=== PATIENT | female | born 1950 | race African-American/Black ===

== ENCOUNTER 2017-01-15 07:47 | Emergency (ER) | payer SELFPAY ==
[~2017-01-15] VITALS: Ht 162.6 cm; Wt 68.0 kg
[2017-01-15] MEDS ORDERED: LIDOCAINE HCL 1% 20ML VIAL (Pyxis) INJ MC ONE (08:15)
[2017-01-15] MEDS ORDERED: BACITRACIN ZINC OINT UDPKT TOP ONE (08:15)
[2017-01-15] MEDS ORDERED: HYDROCODONE/APAP 7.5/325MG 1 TAB TABLET PO ONE (09:15)
[2017-01-15 09:28] VITALS: BP 164/103
== END 2017-01-15 10:31 | disposition home or self-care (01) ==
LOC: ER 08:26
DX: S01.01XA Laceration without foreign body of scalp, initial encounter (principal); Y04.0XXA Assault by unarmed brawl or fight, initial encounter; Y93.89 Activity, other specified; Y92.098 Other place in other non-institutional residence as the place of occurrence of the external cause; E11.9 Type 2 diabetes mellitus without complications; I10 Essential (primary) hypertension; R51 Headache; Z86.73 Personal history of transient ischemic attack (TIA), and cerebral infarction without residual deficits; Z88.0 Allergy status to penicillin; F17.210 Nicotine dependence, cigarettes, uncomplicated; F14.10 Cocaine abuse, uncomplicated; S50.812A Abrasion of left forearm, initial encounter
CPT/HCPCS: 12002; 70450; 99284; J3490; Z7610; 12011

== ENCOUNTER 2019-05-10 02:14 | Emergency (ER) | payer SELFPAY ==
[~2019-05-10] VITALS: Ht 157.5 cm; Wt 57.0 kg
[2019-05-10] MEDS ORDERED: CLONIDINE 0.2MG TABLET PO ONE (02:45)
[2019-05-10 03:04] LABS: CHLORIDE 107 mEq/L (98-107)
[2019-05-10 03:08] LABS: ETHANOL BLOOD < 10 mg/dL
[2019-05-10 03:09] LABS: CLARITY URINE CLEAR (CLEAR); COLOR URINE YELLOW (YELLOW); KETONES URINE NEGATIVE (NEGATIVE); LEUKOCYTE ESTERASE URINE 1+ (NEGATIVE); NITRITE URINE NEGATIVE (NEGATIVE); OCCULT BLOOD URINE NEGATIVE (NEGATIVE); PH URINE 6.5 (4.5-8.0); PROTEIN URINE 2+ (NEGATIVE); SPECIFIC GRAVITY URINE 1.015 (1.005-1.030)
[2019-05-10 03:11] LABS: BASOPHILS % 0.6 % (0.0-2.0); HEMATOCRIT. 33.7 % (36.0-48.0); HEMOGLOBIN. 11.1 g/dL (12.0-16.0); LYMPHOCYTES % 28.9 % (20.0-50.0); MEAN CORPUSCULAR HEMOGLOBIN 28.8 pg (28.0-32.0); MEAN CORPUSCULAR VOLUME 87.1 fL (81.0-99.0); MEAN PLATELET VOLUME 8.5 fl (7.4-10.4); MONOCYTES % 6.1 % (2.0-8.0); NEUTROPHILS % 64.4 % (40.0-76.0); PLATELET 348 x1000/uL (130-400); RED BLOOD CELL COUNT 3.87 mill/uL (4.2-5.4); RED CELL DISTRIBUTION WIDTH 14.6 % (11.6-14.6)
[2019-05-10 03:19] LABS: *AMPHETAMINES SCREEN URINE NEGATIVE (NEGATIVE); *BARBITURATES SCREEN URINE NEGATIVE (NEGATIVE); *BENZODIAZEPINES SCREEN URINE NEGATIVE (NEGATIVE); *COCAINE SCREEN URINE PRESUMTIVE POSITIVE (NEGATIVE); METHADONE URINE SCREEN NEGATIVE (NEGATIVE); OPIATES URINE SCREEN NEGATIVE (NEGATIVE)
[2019-05-10 03:20] LABS: CANNABINOID URINE SCREEN NEGATIVE (NEGATIVE); PHENCYCLIDINE URINE SCREEN PRESUMTIVE POSITIVE (NEGATIVE)
[2019-05-10] MEDS ORDERED: HYDRALAZINE 20MG/ML VIAL IV ONE (03:45)
[2019-05-10 04:34] VITALS: BP 153/90
== END 2019-05-10 04:49 | disposition home or self-care (01) ==
LOC: ER 02:14
DX: F19.10 Other psychoactive substance abuse, uncomplicated (principal); I16.1 Hypertensive emergency; I10 Essential (primary) hypertension; N17.9 Acute kidney failure, unspecified; R41.82 Altered mental status, unspecified; E11.9 Type 2 diabetes mellitus without complications
CPT/HCPCS: 36415; 80305; 80320; 81003; 83880; 84484; 93005; 99284; J0360; G0480

== ENCOUNTER 2019-08-27 09:56 | Emergency (ER) | payer OTHER ==
[~2019-08-27] VITALS: Ht 167.6 cm; Wt 65.0 kg
[2019-08-27] MEDS ORDERED: IPRATROPIUM BROMIDE (0.02%) 0.5MG/2.5ML NEB HHN STA (10:38)
[2019-08-27] MEDS ORDERED: ALBUTEROL (0.083%) 2.5MG/3ML NEB HHN STA (10:38)
[2019-08-27] MEDS ORDERED: METHYLPREDNISOLONE SOD SUCC 125 MG/2 ML VIAL IV STA (10:38)
[2019-08-27] MEDS ORDERED: ASPIRIN 81MG TABLET PO ONE (10:45)
[2019-08-27] MEDS ORDERED: ONDANSETRON HCL 4MG/2ML INJ IV ONE (11:30)
[2019-08-27 11:40] LABS: BASOPHILS % 0.9 % (0.0-2.0); HEMATOCRIT. 33.8 % (36.0-48.0); LYMPHOCYTES % 17.9 % (20.0-50.0); MEAN CORPUSCULAR HEMOGLOBIN 29.7 pg (28.0-32.0); MEAN CORPUSCULAR VOLUME 90.7 fL (81.0-99.0); MEAN PLATELET VOLUME 9.5 fl (7.4-10.4); MONOCYTES % 7.9 % (2.0-8.0); NEUTROPHILS % 73.3 % (40.0-76.0); PLATELET 267 x1000/uL (130-400); RED BLOOD CELL COUNT 3.72 mill/uL (4.2-5.4); RED CELL DISTRIBUTION WIDTH 13.9 % (11.6-14.6)
[2019-08-27 11:47] LABS: CHLORIDE 111 mEq/L (98-107)
[2019-08-27 13:10] VITALS: BP 130/79
== END 2019-08-27 15:05 | disposition home or self-care (01) ==
LOC: ER 09:56
DX: J44.1 Chronic obstructive pulmonary disease with (acute) exacerbation (principal); E11.9 Type 2 diabetes mellitus without complications; I10 Essential (primary) hypertension; I69.328 Other speech and language deficits following cerebral infarction; I69.351 Hemiplegia and hemiparesis following cerebral infarction affecting right dominant side; Z88.0 Allergy status to penicillin
CPT/HCPCS: 36415; 71045; 80053; 83880; 84484; 84550; 85025; 93005; 94640; 96374; 99284; J2930; J7611

== ENCOUNTER 2019-10-23 21:15 | Emergency (ER) | payer MEDICAID ==
[~2019-10-23] VITALS: Ht 167.6 cm; Wt 77.0 kg
[2019-10-23] MEDS ORDERED: HYDRALAZINE HCL 10MG TABLET PO ONE (23:15)
[2019-10-23] MEDS ORDERED: CLONIDINE 0.1MG TABLET PO ONE (23:15)
[2019-10-23 23:35] LABS: BASOPHILS % 0.3 % (0.0-2.0); HEMATOCRIT. 36.2 % (36.0-48.0); HEMOGLOBIN. 11.5 g/dL (12.0-16.0); LYMPHOCYTES % 12.3 % (20.0-50.0); MEAN CORPUSCULAR HEMOGLOBIN 28.8 pg (28.0-32.0); MEAN CORPUSCULAR VOLUME 90.7 fL (81.0-99.0); MEAN PLATELET VOLUME 9.2 fl (7.4-10.4); MONOCYTES % 5.9 % (2.0-8.0); NEUTROPHILS % 81.5 % (40.0-76.0); PLATELET 328 x1000/uL (130-400); RED CELL DISTRIBUTION WIDTH 13.2 % (11.6-14.6)
[2019-10-23 23:42] LABS: CHLORIDE 110 mEq/L (98-107)
[2019-10-24 02:11] LABS: *AMPHETAMINES SCREEN URINE NEGATIVE (NEGATIVE); *BARBITURATES SCREEN URINE NEGATIVE (NEGATIVE); *BENZODIAZEPINES SCREEN URINE NEGATIVE (NEGATIVE); *COCAINE SCREEN URINE PRESUMTIVE POSITIVE (NEGATIVE)
[2019-10-24 02:12] LABS: CANNABINOID URINE SCREEN NEGATIVE (NEGATIVE); METHADONE URINE SCREEN NEGATIVE (NEGATIVE); OPIATES URINE SCREEN NEGATIVE (NEGATIVE); PHENCYCLIDINE URINE SCREEN PRESUMTIVE POSITIVE (NEGATIVE)
[2019-10-24] MEDS ORDERED: MAGNESIUM 2 G PREMIX 50 ML IV ONE (03:15)
[2019-10-24] MEDS ORDERED: ACETAMINOPHEN 325MG TABLET PO ONE (04:00)
[2019-10-24] MEDS ORDERED: HYDRALAZINE 20MG/ML VIAL IV ONE (04:00)
[2019-10-24 07:28] VITALS: BP 128/70
== END 2019-10-24 07:40 | disposition short-term general hospital (02) ==
LOC: ER 21:15
DX: R55 Syncope and collapse (principal); I12.9 Hypertensive chronic kidney disease with stage 1 through stage 4 chronic kidney disease, or unspecified chronic kidney disease; N18.9 Chronic kidney disease, unspecified; R94.31 Abnormal electrocardiogram [ECG] [EKG]; I69.320 Aphasia following cerebral infarction; I69.351 Hemiplegia and hemiparesis following cerebral infarction affecting right dominant side; E11.9 Type 2 diabetes mellitus without complications; J44.9 Chronic obstructive pulmonary disease, unspecified; F17.210 Nicotine dependence, cigarettes, uncomplicated; F14.10 Cocaine abuse, uncomplicated; F16.10 Hallucinogen abuse, uncomplicated; Z88.0 Allergy status to penicillin
CPT/HCPCS: 36415; 71045; 80053; 80305; 81025; 83880; 84443; 84484; 85025; 93005; 96365; 96375; 99285; J0360; J3475